=== PATIENT | female | born 1995 | race Two or more races ===

== ENCOUNTER 2018-11-04 12:18 | Emergency (ER) | payer MEDICAID ==
[~2018-11-04] VITALS: Ht 157.5 cm; Wt 60.0 kg
[2018-11-04] MEDS ORDERED: SODIUM CHLORIDE 0.9% 1,000 ML IV ONE (17:10)
[2018-11-04 17:45] LABS: BASOPHILS % 0.5 % (0.0-2.0); EOSINOPHILS % 0.9 % (0.0-5.0); HEMATOCRIT. 46.1 % (36.0-48.0); LYMPHOCYTES % 34.1 % (20.0-50.0); MEAN CORPUSCULAR HEMOGLOBIN 31.2 pg (28.0-32.0); MEAN CORPUSCULAR VOLUME 90.1 fL (81.0-99.0); MONOCYTES % 5.5 % (2.0-8.0); PLATELET 313 x1000/uL (130-400); RED BLOOD CELL COUNT 5.11 mill/uL (4.2-5.4); RED CELL DISTRIBUTION WIDTH 13.1 % (11.6-14.6)
[2018-11-04 17:51] LABS: CHLORIDE 105 mEq/L (98-107)
[2018-11-04 17:51] LABS: CLARITY URINE CLOUDY (CLEAR); COLOR URINE YELLOW (YELLOW); KETONES URINE 2+ (NEGATIVE); LEUKOCYTE ESTERASE URINE 2+ (NEGATIVE); NITRITE URINE NEGATIVE (NEGATIVE); OCCULT BLOOD URINE 2+ (NEGATIVE); PROTEIN URINE NEGATIVE (NEGATIVE); SPECIFIC GRAVITY URINE 1.035 (1.005-1.030); UROBILINOGEN URINE 0.2 E.U./dL (0.2-1.0)
[2018-11-04 17:55] LABS: PROTHROMBIN TIME 10.7 sec (9.6-11.0)
[2018-11-04] MEDS ORDERED: KETOROLAC 30MG/ML VIAL IV ONE (19:00)
[2018-11-04 21:19] VITALS: BP 127/78
== END 2018-11-04 21:23 | disposition home or self-care (01) ==
LOC: ER 12:18
DX: N39.0 Urinary tract infection, site not specified (principal)
CPT/HCPCS: 36415; 74021; 80053; 81003; 81025; 83690; 85025; 85610; 93005; 96374; 99284; J1885; J7030; Z7610

== ENCOUNTER 2020-10-29 20:42 | Emergency (ER) | payer MEDICAID ==
[~2020-10-29] VITALS: Ht 160 cm; Wt 59.3 kg
[2020-10-29] MEDS ORDERED: ONDANSETRON 4MG ODT PO STA (21:29)
[2020-10-29] MEDS ORDERED: ACETAMINOPHEN 325MG TABLET PO STA (21:29)
[2020-10-29 21:50] LABS: CLARITY URINE CLEAR (CLEAR); COLOR URINE YELLOW (YELLOW); KETONES URINE 1+ (NEGATIVE); LEUKOCYTE ESTERASE URINE 1+ (NEGATIVE); NITRITE URINE NEGATIVE (NEGATIVE); OCCULT BLOOD URINE 1+ (NEGATIVE); PH URINE 6.5 (4.5-8.0); PROTEIN URINE NEGATIVE (NEGATIVE); SPECIFIC GRAVITY URINE 1.023 (1.005-1.030)
[2020-10-29 22:24] LABS: HEMATOCRIT. 39.6 % (36.0-48.0); HEMOGLOBIN. 14.1 g/dL (12.0-16.0); MEAN CORPUSCULAR HEMOGLOBIN 31.2 pg (28.0-32.0); MEAN CORPUSCULAR VOLUME 87.5 fL (81.0-99.0); MEAN PLATELET VOLUME 7.6 fl (7.4-10.4); PLATELET 252 x1000/uL (130-400); RED BLOOD CELL COUNT 4.53 mill/uL (4.2-5.4); RED CELL DISTRIBUTION WIDTH 12.7 % (11.6-14.6)
[2020-10-29] MEDS ORDERED: ONDANSETRON HCL 4MG TABLET PO ONE (22:30)
[2020-10-29 22:31] LABS: CHLORIDE 106 mEq/L (98-107)
[2020-10-29 22:34] LABS: PROTHROMBIN TIME 10.4 sec (9.6-11.0)
[2020-10-29] MEDS ORDERED: NITR100C PO (22:50)
[2020-10-29] MEDS ORDERED: ONDA4TAB5 PO (22:50)
[2020-10-29 23:00] LABS: PLATELET ESTIMATE NORMAL
[2020-10-29 23:14] VITALS: BP 128/84
== END 2020-10-29 23:15 | disposition home or self-care (01) ==
LOC: ER 20:42
DX: R10.9 Unspecified abdominal pain (principal)
CPT/HCPCS: 36415; 80053; 81003; 81025; 83690; 85025; 85610; 99284; Q0162; Z7610

== ENCOUNTER 2024-11-03 20:23 | Emergency (ER) | payer OTHER ==
[~2024-11-03] VITALS: Ht 160 cm; Wt 67.6 kg
[~2024-11-03 20:23] MED LIST: NITR100C PO; ONDA4TAB5 PO
[2024-11-03 20:29] VITALS: TEMP 36.9; O2SAT 100
[2024-11-03 21:28] LABS: BASOPHILS % 0.4 % (0.0-2.0); EOSINOPHILS % 2.1 % (0.0-5.0); LYMPHOCYTES % 20.4 % (20.0-50.0); MEAN CORPUSCULAR HEMOGLOBIN 29.4 pg (28.0-32.0); MEAN CORPUSCULAR HGB CONC 33.3 g/dL (31.0-37.0); MEAN CORPUSCULAR VOLUME 88.1 fL (81.0-99.0); MEAN PLATELET VOLUME 7.6 fl (7.4-10.4); MONOCYTES % 5.3 % (2.0-8.0); NEUTROPHILS % 71.8 % (40.0-76.0); PLATELET 292 x1000/uL (130-400); RED BLOOD CELL COUNT 4.09 mill/uL (4.2-5.4); WHITE BLOOD COUNT 12.4 x1000/uL (4.5-11.0)
[2024-11-03 21:34] LABS: CHLORIDE 104 mEq/L (98-107); POTASSIUM 3.5 mEq/L (3.5-5.1); SODIUM 139 mEq/L (136-145)
[2024-11-03 21:35] LABS: CARBON DIOXIDE 26 mEq/L (21-32)
[2024-11-03 21:36] LABS: CALCIUM 10.1 mg/dL (8.7-10.4)
[2024-11-03 21:40] LABS: CREATININE 0.5 mg/dL (0.6-1.0); GLUCOSE 128 mg/dL (70-105)
[2024-11-03 21:41] LABS: UREA NITROGEN BLOOD 7 mg/dL (9-23)
[2024-11-03 21:43] LABS: HCG SCREEN POSITIVE
[2024-11-03 21:44] LABS: CLARITY URINE CLOUDY (CLEAR); COLOR URINE YELLOW (YELLOW); GLUCOSE URINE NEGATIVE (NEGATIVE); KETONES URINE NEGATIVE (NEGATIVE); LEUKOCYTE ESTERASE URINE NEGATIVE (NEGATIVE); NITRITE URINE NEGATIVE (NEGATIVE); OCCULT BLOOD URINE 2+ (NEGATIVE); PH URINE 7.5 (4.5-8.0); PROTEIN URINE NEGATIVE (NEGATIVE); SPECIFIC GRAVITY URINE 1.016 (1.005-1.030)
[2024-11-03 22:11] LABS: BACTERIA URINE TRACE; SQUAMOUS EPITHELIAL CELL URINE 1+ /lpf (RARE/1+); WBC URINE 0-2 /hpf (0-2)
[2024-11-04 00:02] VITALS: BP 148/92; PULSE 80; RESP 18; O2SAT 100
== END 2024-11-04 00:03 | disposition home or self-care (01) ==
LOC: ER 20:23
DX: O20.8 Other hemorrhage in early pregnancy (principal); O20.0 Threatened abortion; O13.9 Gestational [pregnancy-induced] hypertension without significant proteinuria, unspecified trimester; O99.281 Endocrine, nutritional and metabolic diseases complicating pregnancy, first trimester; E03.9 Hypothyroidism, unspecified; Z79.899 Other long term (current) drug therapy; Z3A.12 12 weeks gestation of pregnancy
CPT/HCPCS: 36415; 76801; 80048; 81003; 84702; 84703; 85025; 86850; 86870; 86900; 99284